=== PATIENT | female | born 2000 | race Caucasian/White ===

== ENCOUNTER 2019-03-14 02:02 | Emergency (ER) | payer MEDICAID ==
[2019-03-14 02:12] VITALS: O2SAT 100
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
[2019-03-14 03:54] VITALS: BP 131/72; PULSE 87
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
== END 2019-03-14 03:54 | disposition home or self-care (01) ==
LOC: ED 02:02
DX: M54.2 Cervicalgia (principal); R51 Headache; M25.551 Pain in right hip; Y04.0XXA Assault by unarmed brawl or fight, initial encounter; Y93.89 Activity, other specified
CPT/HCPCS: 70450; 70486; 72125; 73502; 84703; 99284

== ENCOUNTER 2019-12-13 21:18 | Emergency (ER) | payer MEDICAID ==
[2019-12-13] MEDS ORDERED: Sodium Chloride 0.9% 1000 ML 1,000 ML IV STA (22:01)
[2019-12-13] MEDS ORDERED: Sodium Chloride 0.9% 1000 ML 1,000 ML ONE (22:26)
[2019-12-13 22:50] LABS: Absolute Neutrophil Ct (ANC) 9.14 (1.4-6.9); BASOPHIL % 0.2 % (0.0-0.4); Basophil (Absolute #) 0.02 (0-0.4); Eosinophil % 0.9 % (0.00-5.0); Eosinophil (Absolute #) 0.11 (0-0.5); Hematocrit 43.2 % (35-47); Hemoglobin 14.7 gm/dl (12.0-16.0); Lymphocyte (Absolute #) 2.29 (1.0-4.6); Lymphocytes % 18.3 % (24.0-44.0); Mean Cell Volume 87.6 fl (78-100); Mean Corpuscular Hemoglobin 29.8 pg (26-32); Mean Platelet Volume 11.8 fl (7.5-11.0); Monocyte (Absolute #) 0.98 (0.0-1.3); Monocytes % 7.8 % (0.0-12.0); Neutrophil % 72.8 % (36.0-66.0); Platelet Count 218 K/mm3 (150-450); Red Blood Count 4.93 M/mm3 (4.1-5.4); White Blood Count 12.5 K/mm3 (4.0-10.5)
[2019-12-13 23:04] LABS: ALBUMIN 4.5 g/dL (3.5-5.0); ALKALINE PHOSPHATASE 107 U/L (38-126); BLOOD UREA NITROGEN 9 mg/dL (7-17); CHLORIDE 104 mmol/L (98-107); Calcium 9.6 mg/dL (8.4-10.2); Carbon Dioxide 27 mmol/L (22-30); Creatinine 1 0.77 mg/dL (0.52-1.04); EST GLOMERULAR FILTRATION RATE > 60.0 ML/MIN; Glucose 101 mg/dL (74-106); LIPASE 52 U/L (23-300); Potassium 3.8 mmol/L (3.5-5.1); SGOT/AST 30 U/L (14-36); SGPT/ALT 15 U/L (0-35); SODIUM 138 mmol/L (137-145); Total Protein 7.5 g/dL (6.3-8.2)
[2019-12-13 23:06] LABS: Appearance SLIGHTLY CLOUDY (CLEAR); Bacteria FEW /HPF (NEGATIVE); Bilirubin NEGATIVE (NEGATIVE); Blood LARGE Ery/ul (0-5); Glucose NEGATIVE (NEGATIVE); Ketones NEGATIVE (NEGATIVE); Leukocyte Esterase LARGE (NEGATIVE); Nitrite NEGATIVE (NEGATIVE); Protein,Urine Dip 30 (Negative); RBC 0-2 /HPF (0-2); Specific Gravity 1.002 (1.005-1.025); Urobilinogen NEGATIVE mg/dL (0-1); WBC 26-50 /HPF (0-5)
[2019-12-13] MEDS ORDERED: ROCEPHIN 1 Gm-D5w 50 ml Bag** 1 G/50 ML IVPB IV STA (23:22)
--- NOTE | 2019-12-13 23:22 | ERPHSYRPT ---
- History of Present Illness Time Seen by Provider: 12/13/19 21:55 Historian: patient Exam Limitations: no limitations Patient Subjective Stated Complaint: pt states she has had rt lower abd pain for last 3 days. states pain was much worse tonight after eating. has had some constipation for the last week, hard bm today Triage Nursing Assessment: pt alert and oriented, answers questions approp. pt ambulatory with steady gait noted. respirations nonlabored with lungs cta. abd soft. pt reports rebound tenderness in rt lower quad. bowel sounds present x4. skin pink warm and dry. Physician History: Patient is a 18-year-old female who presents to our ED with complaints of right lower quadrant pain approximately 3 days ago. Pain is been progressive. Pain described as an ache that is well localized. Patient is also noticed that her bowel movement frequency has decreased. Patient states her stools are more firm than normal. No associated nausea or vomiting. No trauma. No fevers. Symptoms are moderate in intensity. No specific worsening or improving factors. Patient voices no other complaints or concerns at this time. Timing/Duration: day(s) Activities at Onset: none Quality: aching Abdominal Pain Onset Location: RLQ Pain Radiation: no radiation Severity of Pain-Max: moderate Severity of Pain-Current: mild Modifying Factors: Improves With: defecating. Worsens With: vomiting, walking Associated Symptoms: No chest pain, No diaphoresis, No diarrhea, No heartburn, No neck pain, No shortness of breath, No syncope, No vomiting, No weakness Previous symptoms: no prior history Allergies/Adverse Reactions: No Known Drug Allergies Allergy (Verified 12/13/19 21:59) Home Medications: Escitalopram Oxalate 10 mg [Lexapro 10 MG] 10 mg PO DAILY 12/13/19 [History] Hx Tetanus, Diphtheria Vaccination/Date Given: Yes Hx Influenza Vaccination/Date Given: No Hx Pneumococcal Vaccination/Date Given: No Immunizations Up to Date: Yes Travel Risk - International Travel Have you traveled outside of the country in past 3 weeks: No - Coronavirus Screening Are you exhibiting any of the following symptoms?: No Close contact with a COVID-19 positive Pt in past 14-21 Days: No - Review of Systems Constitutional: No Symptoms, No Fever, No Chills Eyes: No Symptoms Ears, Nose, & Throat: No Symptoms Respiratory: No Symptoms, No Cough, No Dyspnea Cardiac: No Symptoms, No Chest Pain, No Edema, No Syncope Abdominal/Gastrointestinal: No Symptoms, No Abdominal Pain, No Nausea, No Vomiting, No Diarrhea Genitourinary Symptoms: No Symptoms, No Dysuria Musculoskeletal: No Symptoms, No Back Pain, No Neck Pain Skin: No Symptoms, No Rash Neurological: No Symptoms, No Dizziness, No Focal Weakness, No Sensory Changes Psychological: No Symptoms Endocrine: No Symptoms Hematologic/Lymphatic: No Symptoms Immunological/Allergic: No Symptoms All Other Systems: Reviewed and Negative - Past Medical History Pertinent Past Medical History: Yes Neurological History: No Pertinent History ENT History: No Pertinent History Cardiac History: No Pertinent History Respiratory History: No Pertinent History Endocrine Medical History: No Pertinent History Musculoskeletal History: No Pertinent History GI Medical History: No Pertinent History History: No Pertinent History Psycho-Social History: Depression Female Reproductive Disorders: No Pertinent History Other Medical History: irritable bowel - Past Surgical History Past Surgical History: No - Social History Smoking Status: Former smoker Exposure to second hand smoke: No Drug Use: marijuana Patient Lives Alone: No - Female History Hx Last Menstrual Period: irreg- recent off depo Hx Now: No - Nursing Vital Signs Nursing Vital Signs: Initial Vital Signs Temperature 98.8 F 12/13/19 21:48 Pulse Rate 82 12/13/19 21:48 Respiratory Rate 16 12/13/19 21:48 Blood Pressure 150/89 12/13/19 21:48 O2 Sat by Pulse Oximetry 100 12/13/19 21:48 Pain Scale Pain Intensity 8 - Physical Exam General Appearance: no apparent distress, alert Eye Exam: PERRL/EOMI, eyes nml inspection Ears, Nose, Throat Exam: normal ENT inspection, pharynx normal, moist mucous membranes Neck Exam: normal inspection, non-tender, supple, full range of motion Respiratory Exam: normal breath sounds, lungs clear, No respiratory distress Cardiovascular Exam: regular rate/rhythm, normal heart sounds Gastrointestinal/Abdomen Exam: soft, tenderness, other (Tenderness to palpation right lower quadrant. Positive tenderness at McBurney's point.), No mass, No guarding, No pulsatile mass, No organomegaly Back Exam: normal inspection, normal range of motion, No CVA tenderness, No vertebral tenderness Extremity Exam: normal inspection, normal range of motion, pelvis stable Neurologic Exam: alert, oriented x 3, cooperative, normal mood/affect, nml cerebellar function, sensation nml, No motor deficits Skin Exam: normal color, warm, dry SpO2 Interpretation: normal SpO2: 98 O2 Delivery: Room Air - Course Nursing assessment & vital signs reviewed: Yes - CT Exams Abdomen/Pelvis CT Interpretation: Tele-radiologist Report (CT findings suggestive of cystitis and a sending urinary tract infection without definitive evidence of pyelonephr itis.) Ordered Tests: Active Orders 24 hr Category Date Time Status IV Insertion STAT Care 12/13/19 22:01 Active ABDOMEN AND PELVIS W CONTRAST [CT] Stat Exams 12/13/19 23:20 Taken CBC W DIFF Stat Lab 12/13/19 22:40 Completed CMP Stat Lab 12/13/19 22:40 Completed CULTURE,URINE Stat Lab 12/13/19 22:43 Received HCG,QUALITATIVE URINE Stat Lab 12/13/19 22:43 Completed LIPASE Stat Lab 12/13/19 22:40 Completed UA W/RFX UR CULTURE Stat Lab 12/13/19 22:43 Completed Medication Summary Discontinued Medications Generic Name Dose Route Start Last Admin Trade Name Antonyq PRN Reason Stop Dose Admin Sodium Chloride 1,000 mls @ 999 mls/hr 12/13/19 22:01 12/13/19 22:27 Sodium Chloride 0.9% 1000 Ml IV 12/13/19 23:01 999 mls/hr .Q1H1M STA Administration Sodium Chloride Confirm 12/13/19 22:26 Sodium Chloride 0.9% 1000 Ml Administered 12/13/19 22:27 Dose 1,000 mls @ ud .ROUTE .STK-MED ONE Ceftriaxone Sodium/Dextrose 1 g in 50 mls @ 100 mls/hr 12/13/19 23:22 12/13/19 23:37 Rocephin 1 Gm-D5w 50 Ml Bag IV 12/13/19 23:51 100 ml/hr STAT STA 100 mls/hr Administration Ceftriaxone Sodium/Dextrose Confirm 12/13/19 23:34 Rocephin 1 Gm-D5w 50 Ml Bag Administered 12/13/19 23:35 Dose 1 g in 50 mls @ ud IV .STK-MED ONE Lab/Rad Data: Laboratory Result Diagrams 12/13/19 22:40 12/13/19 22:40 Laboratory Results 12/13/19 12/13/19 12/13/19 Range/Units 22:43 22:43 22:40 WBC (4.0-10.5) K/mm3 RBC (4.1-5.4) M/mm3 Hgb (12.0-16.0) gm/dl Hct (35-47) % MCV (78-100) fl MCH (26-32) pg MCHC (32-36) g/dl RDW (11.5-14.0) % Plt Count (150-450) K/mm3 MPV (7.5-11.0) fl Gran % (36.0-66.0) % Eos # (Auto) (0-0.5) Absolute Lymphs (auto) (1.0-4.6) Absolute Monos (auto) (0.0-1.3) Lymphocytes % (24.0-44.0) % Monocytes % (0.0-12.0) % Eosinophils % (0.00-5.0) % Basophils % (0.0-0.4) % Absolute Granulocytes (1.4-6.9) Basophils # (0-0.4) Sodium 138 (137-145) mmol/L Potassium 3.8 (3.5-5.1) mmol/L Chloride 104 (98-107) mmol/L Carbon Dioxide 27 (22-30) mmol/L Anion Gap 11.0 (5-15) MEQ/L BUN 9 (7-17) mg/dL Creatinine 0.77 (0.52-1.04) mg/dL Estimated GFR > 60.0 ML/MIN Glucose 101 (74-106) mg/dL Calcium 9.6 (8.4-10.2) mg/dL Total Bilirubin 0.50 (0.2-1.3) mg/dL AST 30 (14-36) U/L ALT 15 (0-35) U/L Alkaline Phosphatase 107 (38-126) U/L Serum Total Protein 7.5 (6.3-8.2) g/dL Albumin 4.5 (3.5-5.0) g/dL Lipase 52 (23-300) U/L Urine Color STRAW (YELLOW) Urine Appearance SLIGHTLY CLOUDY (CLEAR) Urine pH 8.0 (5-6) Ur Specific [place] 1.002 (1.005-1.025) Urine Protein 30 (Negative) Urine Ketones NEGATIVE (NEGATIVE) Urine Blood LARGE (0-5) Lb/ul Urine Nitrite NEGATIVE (NEGATIVE) Urine Bilirubin NEGATIVE (NEGATIVE) Urine Urobilinogen NEGATIVE (0-1) mg/dL Ur Leukocyte Esterase LARGE (NEGATIVE) Urine WBC (Auto) 26-50 (0-5) /HPF Urine RBC (Auto) 0-2 (0-2) /HPF U Hyaline Cast (Auto) 3-5 (0-2) /LPF U Epithel Cells (Auto) NONE (FEW) /HPF Urine Bacteria (Auto) FEW (NEGATIVE) /HPF Urine Culture Reflexed YES (NO) Urine Glucose NEGATIVE (NEGATIVE) mg/dL Urine HCG, Qual NEGATIVE (Negative) 12/13/19 Range/Units 22:40 WBC 12.5 H (4.0-10.5) K/mm3 RBC 4.93 (4.1-5.4) M/mm3 Hgb 14.7 (12.0-16.0) gm/dl Hct 43.2 (35-47) % MCV 87.6 (78-100) fl MCH 29.8 (26-32) pg MCHC 34.0 (32-36) g/dl RDW 13.0 (11.5-14.0) % Plt Count 218 (150-450) K/mm3 MPV 11.8 H (7.5-11.0) fl Gran % 72.8 H (36.0-66.0) % Eos # (Auto) 0.11 (0-0.5) Absolute Lymphs (auto) 2.29 (1.0-4.6) Absolute Monos (auto) 0.98 (0.0-1.3) Lymphocytes % 18.3 L (24.0-44.0) % Monocytes % 7.8 (0.0-12.0) % Eosinophils % 0.9 (0.00-5.0) % Basophils % 0.2 (0.0-0.4) % Absolute Granulocytes 9.14 H (1.4-6.9) Basophils # 0.02 (0-0.4) Sodium (137-145) mmol/L Potassium (3.5-5.1) mmol/L Chloride (98-107) mmol/L Carbon Dioxide (22-30) mmol/L Anion Gap (5-15) MEQ/L BUN (7-17) mg/dL Creatinine (0.52-1.04) mg/dL Estimated GFR ML/MIN Glucose (74-106) mg/dL Calcium (8.4-10.2) mg/dL Total Bilirubin (0.2-1.3) mg/dL AST (14-36) U/L ALT (0-35) U/L Alkaline Phosphatase (38-126) U/L Serum Total Protein (6.3-8.2) g/dL Albumin (3.5-5.0) g/dL Lipase (23-300) U/L Urine Color (YELLOW) Urine Appearance (CLEAR) Urine pH (5-6) Ur Specific [place] (1.005-1.025) Urine Protein (Negative) Urine Ketones (NEGATIVE) Urine Blood (0-5) Lb/ul Urine Nitrite (NEGATIVE) Urine Bilirubin (NEGATIVE) Urine Urobilinogen (0-1) mg/dL Ur Leukocyte Esterase (NEGATIVE) Urine WBC (Auto) (0-5) /HPF Urine RBC (Auto) (0-2) /HPF U Hyaline Cast (Auto) (0-2) /LPF U Epithel Cells (Auto) (FEW) /HPF Urine Bacteria (Auto) (NEGATIVE) /HPF Urine Culture Reflexed (NO) Urine Glucose (NEGATIVE) mg/dL Urine HCG, Qual (Negative) - Progress Progress: improved Progress Note: 12/13/19 23:54 Patient reassessed. She feels well. Patient requesting discharge. CT suggesti ve of cystitis and ascending urinary tract infection. UTI observed on UA. Patient received a dose of antibiotics in our ED. A prescription for Macrobid was forwarded the patient's pharmacy. Patient advised to follow-up with her primary care doctor within 48 hours. Patient agrees with plan of care. Patient voiced no other complaints at this time. Patient states she is ready for discharge. Counseled pt/family regarding: lab results, diagnosis, need for follow-up, rad results - Departure Departure Disposition: Home Clinical Impression: UTI (urinary tract infection) Condition: Stable Critical Care Time: No Referrals: WEN ROMAN MD [Primary Care Provider] - Additional Instructions: Discharge/Care Plan EWELINA FARMER was seen on 12/13/19 in the Emergency Room. The patient was counseled regarding Diagnosis,Lab results, Imaging studies, need for follow up and when to return to the Emergency Room. Prescriptions given: Discharge Note I have spoken with the patient and/or caregivers. I have explained the patient's condition, diagnosis and treatment plan based on the information available to me at this time. I have answered the patient's and/or caregiver's questions and addressed any concerns. The patient and/or caregivers have as good understanding of the patient's diagnosis, condition and treatment plan as can be expected at this point. The vital signs have been stable. The patient's condition is stable and appropriate for discharge from the emergency department. The patient will pursue further outpatient evaluation with the primary care physician or other designated or consulting physician as outlined in the discharge instructions. The patient and/or caregivers are agreeable to this plan of care and follow-up instructions have been explained in detail. The patient and/or caregivers have received these instruction. The patient/and or caregivers are aware that any significant change in condition or worsening of symptoms should prompt an immediate return to this or the closest emergency department or call 911. Prescriptions: Nitrofurantoin Macro 100 mg [Macrobid 100MG Capsule] 100 mg PO BID 7 Days #14 capsule
[2019-12-13] MEDS ORDERED: ROCEPHIN 1 Gm-D5w 50 ml Bag** 1 G/50 ML IVPB IV ONE (23:34)
[2019-12-14 00:21] VITALS: BP 118/71; PULSE 81; O2SAT 99
--- NOTE | 2019-12-14 08:49 | XRAY ---
Indication: Right lower quadrant pain. UTI symptoms. Multiple contiguous axial images obtained through the abdomen and pelvis using 80 cc Isovue 370 contrast only. Comparison: None Lung bases are clear. Heart is not enlarged. Stomach is distended with food/fluid. Noncontrasted stomach and bowel loops appear nonobstructed. Appendix not seen. Mild diffuse scattered colonic fecal debris. No free fluid/air. Right kidney demonstrates minimal perinephric haziness favoring underlying pyelonephritis. Mid to proximal right ureter also demonstrates minimal wall thickening as does the normally distended urinary bladder suggesting additional inflammatory process. Remaining liver, gallbladder, pancreas, spleen, adrenal glands, kidneys, ureters, bladder, uterus, and aorta appear unremarkable. No pathologic retroperitoneal lymphadenopathy. Osseous structures intact. Impression: 1. CT features as detailed favoring mild right pyelonephritis with mild ureteritis/cystitis. 2. Incidental mild diffuse fecal stasis. Comment: Preliminary interpretation was made by [facility]. No critical discrepancy.
== END 2019-12-14 00:30 | disposition home or self-care (01) ==
LOC: ED 21:18
DX: N39.0 Urinary tract infection, site not specified (principal)
CPT/HCPCS: 36000; 36415; 74177; 80053; 81001; 83690; 84703; 85025; 87077; 87086; 87186; 96360; 96365; 99284; J0696

== ENCOUNTER 2022-04-05 09:57 | Emergency (ER) | payer MEDICAID ==
[2022-04-05 10:21] VITALS: O2SAT 99
[2022-04-05 11:36] LABS: INFLUENZA A NEGATIVE (NEGATIVE); INFLUENZA B NEGATIVE (NEGATIVE); RESPIRATORY SYNCTIAL VIRUS NEGATIVE (Negative)
[2022-04-05 11:40] LABS: SARS-CoV-2 Xpert Express POSITIVE (NEGATIVE)
[2022-04-05 12:18] VITALS: PULSE 80
--- NOTE | 2022-04-05 12:19 | ERPHSYRPT ---
- History of Present Illness Time Seen by Provider: 04/05/22 10:47 Source: patient Exam Limitations: no limitations Patient Subjective Stated Complaint: Patient is c/o cough, runny nose, aches, "being tired" for the past few days. Patient states her son has COVID. Triage Nursing Assessment: Patient ambulated back to ED without difficulties. She is alert and oriented. No SOB noted. Patient smiling and laughing with staff. Clear drainage noted from both nares. Patient clearing her throat at times. No cough noted during assessment. Physician History: 21 years old female presented in the ER with chief complaint of flulike symptoms for the last couple of days with progressive worsening. Patient reports cough congestion, runny nose along with body aches fatigue tiredness, headache and dizziness. Son has similar symptoms and was tested positive. Patient is very anxious. Wants to be tested for COVID-19 as her home test was negative. Timing/Duration: day(s) (2), intermittent, gradual onset Cough Quality/Degree: mild, dry cough Possible Cause: illness exposure Modifying Factors: Worsens With: coughing Associated Symptoms: cough, dizziness, headache, muscle aches, nasal congestion, nasal drainage, sore throat, No shortness of breath, No wheezing Allergies/Adverse Reactions: latex Allergy (Verified 04/05/22 10:05) Latex, Natural Rubber Allergy (Verified 04/05/22 10:05) Home Medications: No Reportable Medications [No Reported Medications] 04/05/22 [History] Hx Tetanus, Diphtheria Vaccination/Date Given: Yes Hx Influenza Vaccination/Date Given: No Hx Pneumococcal Vaccination/Date Given: No Immunizations Up to Date: Yes Travel Risk - International Travel Have you traveled outside of the country in past 3 weeks: No - Coronavirus Screening Are you exhibiting any of the following symptoms?: Yes Symptoms: Fever, Cough: New Onset, Headaches/Body Aches/Fatigue Close contact with a COVID-19 positive Pt in past 14-21 Days: Yes - Vaccine Status Have you recieved a Covid-19 vaccination: No - Review of Systems Constitutional: Fatigue, Weakness Eyes: No Symptoms Ears, Nose, & Throat: Nose Congestion Respiratory: Cough Cardiac: No Symptoms Abdominal/Gastrointestinal: No Symptoms Genitourinary Symptoms: No Symptoms Musculoskeletal: Myalgias Neurological: Dizziness, Headache Psychological: Anxiety Endocrine: No Symptoms Hematologic/Lymphatic: No Symptoms Immunological/Allergic: No Symptoms - Past Medical History Pertinent Past Medical History: Yes Neurological History: No Pertinent History ENT History: No Pertinent History Cardiac History: No Pertinent History Respiratory History: No Pertinent History Endocrine Medical History: No Pertinent History Musculoskeletal History: No Pertinent History GI Medical History: No Pertinent History History: No Pertinent History Psycho-Social History: Depression Female Reproductive Disorders: No Pertinent History Other Medical History: irritable bowel - Past Surgical History Past Surgical History: No - Social History Smoking Status: Former smoker Exposure to second hand smoke: No Drug Use: marijuana Patient Lives Alone: No - Female History Hx Last Menstrual Period: NOW Hx Now: No - Nursing Vital Signs Nursing Vital Signs: Initial Vital Signs Temperature 98.2 F 04/05/22 10:08 Pulse Rate 78 04/05/22 10:08 Respiratory Rate 16 04/05/22 10:08 Blood Pressure 120/76 04/05/22 10:08 O2 Sat by Pulse Oximetry 99 04/05/22 10:08 Pain Scale Pain Intensity 4 - Physical Exam General Appearance: no apparent distress, alert, anxiety Eye Exam: PERRL/EOMI, eyes nml inspection Ears, Nose, Throat Exam: TMs normal, pharyngeal erythema Neck Exam: normal inspection, non-tender, supple, full range of motion Respiratory Exam: normal breath sounds, lungs clear Cardiovascular Exam: regular rate/rhythm, normal heart sounds Gastrointestinal/Abdomen Exam: soft, normal bowel sounds, No tenderness Back Exam: normal inspection, normal range of motion Extremity Exam: normal inspection, normal range of motion Neurologic Exam: alert, oriented x 3, cooperative, No normal mood/affect (Anxious) Skin Exam: normal color SpO2 Interpretation: normal SpO2: 99 O2 Delivery: Room Air Lab/Rad Data: Laboratory Results 04/05/22 Range/Units 10:10 Influenza Type A Ag NEGATIVE (NEGATIVE) Influenza Type B Ag NEGATIVE (NEGATIVE) RSV (PCR) NEGATIVE (Negative) SARS-CoV-2 (PCR) POSITIVE A (NEGATIVE) - Progress Progress: re-examined Air Movement: good Progress Note: 04/05/22 12:18 Patient is very anxious, she is counseled. Feeling better. Has positive COVID- 19, recommended supportive care. Do not think she needs any other work-up and stable for discharge. Discussed signs symptoms of worsening needing return to ER which she is in understanding. Blood Culture(s) Obtained: No Antibiotics given: No Counseled pt/family regarding: lab results, diagnosis, need for follow-up - Departure Departure Disposition: Home Clinical Impression: COVID-19 virus detected, Viral syndrome Condition: Stable Critical Care Time: No Referrals: WEN ROMAN MD [Primary Care Provider] - Follow Up with PCP/3 days Instructions: Viral Syndrome (DC), COVID-19 (DC) Additional Instructions: Drink plenty of fluids to keep yourself well-hydrated. Take Tylenol/ibuprofen as needed. Follow-up with primary care for reevaluation. Return to ER for any worsening.
[2022-04-05 12:20] VITALS: BP 111/83
== END 2022-04-05 12:27 | disposition home or self-care (01) ==
LOC: ED 09:57
DX: U07.1 COVID-19 (principal); R05.1 Acute cough; R09.81 Nasal congestion; M79.10 Myalgia, unspecified site; R53.83 Other fatigue; R51.9 Headache, unspecified; R42 Dizziness and giddiness; Z28.310 Unvaccinated for COVID-19
CPT/HCPCS: 0241U; 99282

== ENCOUNTER 2022-04-18 14:52 | Emergency (ER) | payer MEDICAID, OTHER ==
[2022-04-18 15:03] VITALS: BP 146/78; O2SAT 99
--- NOTE | 2022-04-18 16:13 | ERPHSYRPT ---
- History of Present Illness Time Seen by Provider: 04/18/22 15:55 Source: patient Exam Limitations: no limitations Patient Subjective Stated Complaint: Pt states "We have been here 3 times this week. I had covid on the 01 of april and we went to [facility] and they s ent us here. I noticed that there was mold in our appartment and I know that can cause issues." Triage Nursing Assessment: PT presented alert and oriented X 3, skin pwd. Pt am bulates with an upright steady gait, able to speak in clear full sentences. Pt is on ammoxicillin, second day. Physician History: This a 21-year-old white female who is on amoxicillin from an earlier visit at urgent care clinic and presents to the emergency department with resolved right eye swelling. She was concerned and called the urgent care clinic because she just found out there is significant amount of mold at her home. Urgent care clinic told her to come to the emergency department. On arrival to the emergency department she is afebrile her vital signs are normal. She has no specific complaints. Her eye swelling has completely resolved. Timing/Duration: today Severity: mild Modifying Factors: Improves With: nothing Associated Symptoms: denies symptoms Allergies/Adverse Reactions: latex Allergy (Verified 04/05/22 10:05) Latex, Natural Rubber Allergy (Verified 04/05/22 10:05) Home Medications: Amoxicillin 875 mg PO DAILY 04/18/22 [History] Hx Tetanus, Diphtheria Vaccination/Date Given: Yes Hx Influenza Vaccination/Date Given: No Hx Pneumococcal Vaccination/Date Given: No Immunizations Up to Date: Yes Travel Risk - International Travel Have you traveled outside of the country in past 3 weeks: No - Coronavirus Screening Are you exhibiting any of the following symptoms?: No Close contact with a COVID-19 positive Pt in past 14-21 Days: No - Vaccine Status Have you recieved a Covid-19 vaccination: No - Review of Systems Constitutional: No Symptoms Eyes: No Symptoms, Other (Eye swelling that was present yesterday has resolved) Respiratory: No Symptoms Cardiac: No Symptoms Abdominal/Gastrointestinal: No Symptoms Genitourinary Symptoms: No Symptoms Musculoskeletal: No Symptoms Skin: No Symptoms Neurological: No Symptoms Psychological: No Symptoms Endocrine: No Symptoms Hematologic/Lymphatic: No Symptoms Immunological/Allergic: No Symptoms All Other Systems: Reviewed and Negative - Past Medical History Pertinent Past Medical History: Yes Neurological History: No Pertinent History ENT History: No Pertinent History Cardiac History: No Pertinent History Respiratory History: No Pertinent History Endocrine Medical History: No Pertinent History Musculoskeletal History: No Pertinent History GI Medical History: No Pertinent History History: No Pertinent History Psycho-Social History: Depression Female Reproductive Disorders: No Pertinent History Other Medical History: irritable bowel - Past Surgical History Past Surgical History: No - Social History Smoking Status: Former smoker Exposure to second hand smoke: No Drug Use: marijuana Patient Lives Alone: No - Female History Hx Last Menstrual Period: 04/01/2022 Hx Now: No - Nursing Vital Signs Nursing Vital Signs: Initial Vital Signs Temperature 97.3 F 04/18/22 14:58 Pulse Rate 92 H 04/18/22 14:58 Respiratory Rate 20 04/18/22 14:58 Blood Pressure 146/78 04/18/22 14:58 O2 Sat by Pulse Oximetry 99 04/18/22 14:58 Pain Scale Pain Intensity 2 - Physical Exam General Appearance: no apparent distress, alert, anxiety, thin Eye Exam: PERRL/EOMI, eyes nml inspection Ears, Nose, Throat Exam: normal ENT inspection, moist mucous membranes Neck Exam: normal inspection, non-tender, supple, full range of motion Respiratory Exam: normal breath sounds, lungs clear, airway intact, No chest tenderness, No respiratory distress Cardiovascular Exam: regular rate/rhythm, normal heart sounds, normal peripheral pulses Gastrointestinal/Abdomen Exam: soft, normal bowel sounds, No tenderness Pelvic Exam: not done Rectal Exam: not done Back Exam: normal inspection Extremity Exam: normal inspection, normal range of motion, pelvis stable Neurologic Exam: alert, oriented x 3, cooperative, 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, normal mood/affect, nml cerebellar function, nml station & gait, sensation nml Skin Exam: normal color, warm, dry Lymphatic Exam: No adenopathy SpO2 Interpretation: normal SpO2: 99 O2 Delivery: Room Air - Course Nursing assessment & vital signs reviewed: Yes - Progress Progress: unchanged Counseled pt/family regarding: diagnosis, need for follow-up - Departure Departure Disposition: Home Clinical Impression: Encounter for medical screening examination Condition: Stable Critical Care Time: No Referrals: MARTÍNEZ TOMAS MD [Primary Care Provider] - Follow up/PCP as directed Additional Instructions: Avoid exposure to mold. Drink plenty of fluids. Continue medication as prescribed. Follow-up with your primary care physician on as-needed basis.
[2022-04-18 16:21] VITALS: PULSE 84
== END 2022-04-18 16:21 | disposition home or self-care (01) ==
LOC: ED 14:52
DX: Z77.120 Contact with and (suspected) exposure to mold (toxic) (principal); Z28.310 Unvaccinated for COVID-19
CPT/HCPCS: 99281

== ENCOUNTER 2024-05-03 09:59 | Emergency (ER) | payer OTHER ==
[2024-05-03 10:08] VITALS: RESP 18; TEMP 97.5
--- NOTE | 2024-05-03 10:28 | ERPHSYRPT ---
- History of Present Illness Time Seen by Provider: 05/03/24 10:20 Source: patient Exam Limitations: no limitations Patient Subjective Stated Complaint: Pt states "I got the flu shot in my right delt yesterday and last night I started to get a rash on my right shoulder and when I woke up this morning my throat was hurting and I have a rash down my right arm." Triage Nursing Assessment: Pt presented alert and oriented X 3, skin pwd. pt ambulates with an upright steady gait, able to speak in clear full sentences. Pt resting comfortably on the bed. Physician History: This is a 23-year-old white female patient who presents to the emergency department approximately 24 hours after receiving flu shot in her right shoulder. She was concerned because she had a rash going down her right arm followed by tightening of her throat and a sore throat that came on suddenly. Her primary concern is that she was having an allergic reaction to something and likely the flu shot per her concern. She has no wheezing. She has no breathing issues. Her room air oxygen saturation level is 98%. She was tearful. Timing/Duration: yesterday, worse (This morning) Cough Quality/Degree: mild, dry cough Possible Cause: no prior episodes Modifying Factors: Improves With: coughing Associated Symptoms: cough, sore throat Allergies/Adverse Reactions: latex Allergy (Verified 04/05/22 10:05) Latex, Natural Rubber Allergy (Verified 04/05/22 10:05) Hx Tetanus, Diphtheria Vaccination/Date Given: Yes Hx Influenza Vaccination/Date Given: Yes Hx Pneumococcal Vaccination/Date Given: No Immunizations Up to Date: No Travel Risk - International Travel Have you traveled outside of the country in past 3 weeks: No - Emerging Infectious Disease Are you exhibiting symptoms associated with any current EIDs: No Symptoms: Cough: New Onset, Rash - Review of Systems Constitutional: No Symptoms Eyes: No Symptoms Ears, Nose, & Throat: Throat Pain Respiratory: No Symptoms Cardiac: No Symptoms Abdominal/Gastrointestinal: No Symptoms Genitourinary Symptoms: No Symptoms Musculoskeletal: No Symptoms Skin: Rash (Primarily her right arm) Neurological: No Symptoms Psychological: No Symptoms Endocrine: No Symptoms Hematologic/Lymphatic: No Symptoms Immunological/Allergic: No Symptoms All Other Systems: Reviewed and Negative - Past Medical History Pertinent Past Medical History: Yes Neurological History: No Pertinent History ENT History: No Pertinent History Cardiac History: No Pertinent History Respiratory History: No Pertinent History Endocrine Medical History: No Pertinent History Musculoskeletal History: No Pertinent History GI Medical History: No Pertinent History History: No Pertinent History Psycho-Social History: Depression Female Reproductive Disorders: No Pertinent History Other Medical History: irritable bowel - Past Surgical History Past Surgical History: No - Female History Hx Last Menstrual Period: 04/27/2024 Hx Now: No - Social History Smoking Status: Current every day smoker How long have you smoked: couple yea Exposure to second hand smoke: Yes Drug Use: marijuana Patient Lives Alone: No - Social Determinants of Health Will the patient participate in the screening: Yes Do you worry about a steady place to live?: No Do you have any problems with any of the following?: No known problems In the past 12 months,have you had to go without utilities?: No Transportation Issues: No Has anyone in your support network made you feel unsafe?: No Have you or anyone in your house had to go without enough: No - Nursing Vital Signs Nursing Vital Signs: Initial Vital Signs Temperature 97.5 F 05/03/24 10:02 Pulse Rate 102 H 05/03/24 10:02 Respiratory Rate 18 05/03/24 10:02 Blood Pressure 148/90 05/03/24 10:02 O2 Sat by Pulse Oximetry 96 05/03/24 10:02 Pain Scale Pain Intensity 0 - Physical Exam General Appearance: no apparent distress, alert, anxiety Eye Exam: PERRL/EOMI, eyes nml inspection Ears, Nose, Throat Exam: normal ENT inspection, TMs normal, pharynx normal, moist mucous membranes Neck Exam: normal inspection, non-tender, supple, full range of motion Respiratory Exam: normal breath sounds, lungs clear, No chest tenderness, No respiratory distress, No wheezing, No stridor Cardiovascular Exam: regular rate/rhythm, normal heart sounds, normal peripheral pulses Gastrointestinal/Abdomen Exam: soft, normal bowel sounds, No tenderness Pelvic Exam: not done Rectal Exam: not done Back Exam: normal inspection, normal range of motion, No CVA tenderness, No vertebral tenderness Extremity Exam: normal inspection, normal range of motion, pelvis stable Neurologic Exam: alert, oriented x 3, cooperative, 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 tested, nml cerebellar function, nml station & gait, sensation nml Skin Exam: normal color, warm, dry Lymphatic Exam: No adenopathy SpO2 Interpretation: normal SpO2: 96 O2 Delivery: Room Air - Course Nursing assessment & vital signs reviewed: Yes Ordered Tests: Active Orders 24 hr Category Date Time Status CHEST 1 VIEW (PORTABLE) Stat Exams 05/03/24 10:21 Completed Medication Summary Generic Name Dose Route Start Last Admin Trade Name Christian PRN Reason Stop Dose Admin Famotidine 40 mg 05/03/24 11:47 Famotidine 20 Mg Tablet PO 05/03/24 11:48 STAT ONE Prednisone 20 mg 05/03/24 11:46 Prednisone 20 Mg Tablet PO 05/03/24 11:47 STAT ONE Lab/Rad Data: Laboratory Results 05/03/24 05/03/24 Range/Units 10:21 10:21 Influenza Type A Ag NEGATIVE (NEGATIVE) Influenza Type B Ag NEGATIVE (NEGATIVE) RSV (PCR) NEGATIVE (NEGATIVE) SARS-CoV-2 (PCR) NEGATIVE (NEGATIVE) Group A Strep Antibody NOT DETECTED (NEGATIVE) - Progress Progress: improved, re-examined Air Movement: good Progress Note: 05/03/24 10:33 My medical decision making and the assignment of low to moderate complexity is based on review of the patient's past medical history, review of the patient's medication list, reviewed patient drug allergy list, history present illness and physical findings on examination. The workup in this patient includes viral swabs, group A strep test and chest x-ray. Differential diagnosis includes but is not limited to allergic reaction, viral illness, strep pharyngitis, upper respiratory infection, pneumonia 05/03/24 11:47 I interpreted the patient's laboratory data results. Based on the laboratory data results, the patient does not have an acute, emergent medical issue. For the patient's peace of mind, we will treat her for an allergic reaction. Blood Culture(s) Obtained: No Antibiotics given: No Medical Desision Making - Diagnostic Testing Diagnostic test were ordered, analyzed, and reviewed by me: Yes - Risk of complications The pt has a mod risk of morbidity or mortality based on: Need for prescription drug management - Departure Departure Disposition: Home Clinical Impression: Allergic reaction Condition: Stable Critical Care Time: No Additional Instructions: Drink plenty of fluids. Take Benadryl 25 mg orally 3 times a day for 4 days. Take your new prescription medications as prescribed. Call your prescribing provider today, 05/03/2024, to make arrangements for follow-up appointment for further evaluation management. Prescriptions: Prednisone 10 mg [Deltasone 10 mg] 10 mg PO TID #12 tablet Famotidine 20 mg [Pepcid 20 MG] 20 mg PO DAILY #5 tablet
--- NOTE | 2024-05-03 10:44 | XRAY ---
Indication: Cough and sore throat. Comparison: October 07, 2023 Portable chest again demonstrates normal heart and lungs. Bony thorax intact. No new/acute findings.
[2024-05-03 11:02] VITALS: BP 116/67; PULSE 80
[2024-05-03 11:40] LABS: INFLUENZA A NEGATIVE (NEGATIVE); INFLUENZA B NEGATIVE (NEGATIVE); RESPIRATORY SYNCTIAL VIRUS NEGATIVE (NEGATIVE); SARS-CoV-2 Xpert Express NEGATIVE (NEGATIVE)
[2024-05-03] MEDS ORDERED: Pepcid 20 MG ONE ×2 (11:49→11:50)
[2024-05-03] MEDS: DELTASONE 20 MG PO ONE (11:49)
[2024-05-03] MEDS ORDERED: DELTASONE 20 MG ONE (11:49)
[2024-05-03] MEDS: Pepcid 20 MG PO ONE (11:50)
[2024-05-03 11:51] VITALS: O2SAT 96
== END 2024-05-03 12:04 | disposition home or self-care (01) ==
LOC: ED 09:59
DX: T78.40XA Allergy, unspecified, initial encounter (principal); R21 Rash and other nonspecific skin eruption; J02.9 Acute pharyngitis, unspecified; Z79.52 Long term (current) use of systemic steroids; Z79.899 Other long term (current) drug therapy; Z72.0 Tobacco use
CPT/HCPCS: 0241U; 71045; 87651; 99284; 99283; A9270-GY

== ENCOUNTER 2024-05-12 01:03 | Emergency (ER) | payer OTHER ==
[2024-05-12 01:32] VITALS: TEMP 98.3
--- NOTE | 2024-05-12 01:51 | ERPHSYRPT ---
- History of Present Illness Time Seen by Provider: 05/12/24 01:40 Historian: patient Exam Limitations: no limitations Patient Subjective Stated Complaint: c/o nausea and lightheaded Triage Nursing Assessment: Patient brought to ED by boyfriend with c/o nausea and lightheadedness. patient stated that she has felt lightheaded all day and went home from work around 2300 and symptoms haven't gone away. no vomiting, patient has had diarrhea for 2 days. bowel sounds present in all 4 quads, last BM and oral intake was today. patient appears pale, afebrile, vitals wnl, pulses normal, gait steady, patient doesn't appear to be in any distress at this time. Physician History: This is a 23-year-old white female patient of Dr. Tomas who presents to the emergency department with complaints of nausea, lightheadedness and diarrhea intermittently for 2 days. Patient has a history of anxiety, depression, irritable bowel syndrome. She recently flu vaccination. In the last couple days she had the above-stated symptoms and she feels as though she was going to pass out. She did go to work today. When she was home she had to go outside because she was having trouble breathing. She has not had cough. She denies chest pain. She currently has no shortness of breath. She is a daily smoker of tobacco cigarettes. Timing/Duration: day(s) (2), worse Activities at Onset: none Severity of Pain-Max: mild Severity of Pain-Current: mild Modifying Factors: Improves With: other (Nausea and diarrhea) Associated Symptoms: diarrhea, loss of appetite, nausea, other (Lightheadedness) Previous symptoms: no prior history, recently seen Allergies/Adverse Reactions: egg Allergy (Verified 05/12/24 01:33) latex Allergy (Verified 05/12/24 01:33) Latex, Natural Rubber Allergy (Verified 05/12/24 01:33) Hx Tetanus, Diphtheria Vaccination/Date Given: Yes Hx Influenza Vaccination/Date Given: Yes Hx Pneumococcal Vaccination/Date Given: No Travel Risk - International Travel Have you traveled outside of the country in past 3 weeks: No - Emerging Infectious Disease Are you exhibiting symptoms associated with any current EIDs: Yes Symptoms: Abdominal Pain, Diarrhea - Review of Systems Constitutional: No Symptoms Eyes: No Symptoms Ears, Nose, & Throat: No Symptoms Respiratory: No Symptoms Cardiac: No Symptoms Abdominal/Gastrointestinal: Nausea, Diarrhea, Appetite Changes Genitourinary Symptoms: No Symptoms Neurological: Other (Lightheadedness) Psychological: No Symptoms Endocrine: No Symptoms Hematologic/Lymphatic: No Symptoms Immunological/Allergic: No Symptoms All Other Systems: Reviewed and Negative - Past Medical History Pertinent Past Medical History: Yes Neurological History: No Pertinent History ENT History: No Pertinent History Cardiac History: No Pertinent History Respiratory History: No Pertinent History Endocrine Medical History: No Pertinent History Musculoskeletal History: No Pertinent History GI Medical History: No Pertinent History History: No Pertinent History Psycho-Social History: Depression Female Reproductive Disorders: No Pertinent History Other Medical History: irritable bowel - Past Surgical History Past Surgical History: No - Female History Hx Last Menstrual Period: 04/27/2024 Hx Now: No - Social History Smoking Status: Current every day smoker How long have you smoked: couple yea Exposure to second hand smoke: Yes Drug Use: none Patient Lives Alone: No - Social Determinants of Health Will the patient participate in the screening: Yes Do you worry about a steady place to live?: No Do you have any problems with any of the following?: No known problems In the past 12 months,have you had to go without utilities?: No Transportation Issues: No Has anyone in your support network made you feel unsafe?: No Have you or anyone in your house had to go without enough: No - Nursing Vital Signs Nursing Vital Signs: Initial Vital Signs Temperature 98.3 F 05/12/24 01:21 Pulse Rate 85 05/12/24 01:21 Respiratory Rate 18 05/12/24 01:21 Blood Pressure 160/74 05/12/24 01:21 O2 Sat by Pulse Oximetry 99 05/12/24 01:21 Pain Scale Pain Intensity 6 - Physical Exam General Appearance: no apparent distress, alert, anxiety Eye Exam: PERRL/EOMI, eyes nml inspection Ears, Nose, Throat Exam: normal ENT inspection, moist mucous membranes Neck Exam: normal inspection, non-tender, supple, full range of motion Respiratory Exam: normal breath sounds, lungs clear, airway intact, No chest tenderness, No respiratory distress Cardiovascular Exam: regular rate/rhythm, normal heart sounds, normal peripheral pulses Gastrointestinal/Abdomen Exam: soft, normal bowel sounds, No tenderness Pelvic Exam: not done Rectal Exam: not done Back Exam: normal inspection, normal range of motion, No CVA tenderness, No vertebral tenderness Extremity Exam: normal inspection, normal range of motion, pelvis stable Neurologic Exam: alert, oriented x 3, cooperative, 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 nml as tested, nml cerebellar function, nml station & gait, sensation nml Skin Exam: normal color, warm, dry Lymphatic Exam: No adenopathy SpO2 Interpretation: normal SpO2: 99 O2 Delivery: Room Air - Course Nursing assessment & vital signs reviewed: Yes Ordered Tests: Active Orders 24 hr Category Date Time Status IV Insertion STAT Care 05/12/24 01:51 Active AMYLASE Stat Lab 05/12/24 02:05 Completed CBC W DIFF Stat Lab 05/12/24 02:05 Completed CMP Stat Lab 05/12/24 02:05 Completed HCG QUALITATIVE, URINE Stat Lab 05/12/24 02:05 Completed LIPASE Stat Lab 05/12/24 02:05 Completed MONO SCREEN Stat Lab 05/12/24 02:05 Completed UA W/RFX UR CULTURE Stat Lab 05/12/24 02:05 Completed Medication Summary Discontinued Medications Generic Name Dose Route Start Last Admin Trade Name Antonyq PRN Reason Stop Dose Admin Sodium Chloride 1,000 mls @ 999 mls/hr 05/12/24 01:51 05/12/24 03:13 Sodium Chloride 0.9% 1000 Ml IV 05/12/24 02:51 Infused .Q1H1M STA Infusion Sodium Chloride Confirm 05/12/24 02:03 Sodium Chloride 0.9% 1000 Ml Administered 05/12/24 02:04 Dose 1,000 mls @ ud .ROUTE .STK-MED ONE Ondansetron HCl 4 mg 05/12/24 01:51 05/12/24 02:04 Ondansetron Hcl 4 Mg/2 Ml Vial IV 05/12/24 01:52 4 mg STAT ONE Administration Ondansetron HCl Confirm 05/12/24 02:03 Ondansetron Hcl 4 Mg/2 Ml Vial Administered 05/12/24 02:04 Dose 4 mg .ROUTE .STK-MED ONE Lab/Rad Data: Laboratory Result Diagrams 05/12/24 02:05 05/12/24 02:05 Laboratory Results 05/12/24 05/12/24 05/12/24 Range/Units 02:05 02:05 02:05 WBC 9.3 (3.98-10.04) x10^3/uL RBC 4.87 (3.93-5.22) x10^6/uL Hgb 14.2 (11.2-15.7) g/dL Hct 40.3 (34.1-44.9) % MCV 82.8 (79.4-94.8) fL MCH 29.2 (25.6-32.2) pg MCHC 35.2 (32.2-35.5) g/dL RDW 12.5 (11.7-14.4) % Plt Count 230 (182-369) x10^3/uL MPV 11.3 (9.4-12.3) fL Gran % 78.5 H (34.0-71.1) % Immature Gran % (Auto) 0.2 (0.001-0.429) % Nucleat RBC Rel Count 0.0 (0.00-0.2) % Eos # (Auto) 0.04 (0.04-0.36) x10^3/uL Immature Gran # (Auto) 0.02 (0.001-0.031) x10^3u/L Absolute Lymphs (auto) 1.38 (1.18-3.74) x10^3/uL Absolute Monos (auto) 0.54 (0.24-0.86) x10^3/uL Absolute Nucleated RBC 0.00 (0.00-0.012) x10^3u/L Lymphocytes % 14.9 L (19.3-51.7) % Monocytes % 5.8 (4.7-12.5) % Eosinophils % 0.4 L (0.7-5.8) % Basophils % 0.2 (0.1-1.2) % Absolute Granulocytes 7.29 H (1.56-6.13) x10^3/uL Basophils # 0.02 (0.01-0.08) x10^3/uL Sodium 139 (135-145) mmol/L Potassium 3.7 (3.5-5.1) mmol/L Chloride 106 (98-107) mmol/L Carbon Dioxide 23 (22-30) mmol/L Anion Gap 13.0 (5-15) MEQ/L BUN 10 (7-17) mg/dL Creatinine 0.80 (0.52-1.04) mg/dL Estimated GFR 105.5 ML/MIN Glucose 129 H (74-106) mg/dL Calcium 9.7 (8.4-10.2) mg/dL Total Bilirubin 0.60 (0.2-1.3) mg/dL AST 32 (14-36) U/L ALT 20 (0-35) U/L Alkaline Phosphatase 104 (38-126) U/L Serum Total Protein 7.9 (6.3-8.2) g/dL Albumin 4.7 (3.5-5.0) g/dL Amylase 64 (30-110) U/L Lipase 55 (23-300) U/L Urine Color (Yellow) Urine Appearance (Clear) Urine pH (4.6-8.0) Ur Specific Meta (1.005-1.030) Urine Protein (Negative) Urine Glucose (UA) (Negative) mg/dL Urine Ketones (Negative) Urine Blood (Negative) Urine Nitrite (Negative) Urine Bilirubin (Negative) Urine Urobilinogen (0.2) mg/dL Ur Leukocyte Esterase (Negative) U Hyaline Cast (Auto) (0-2) /LPF Urine Microscopic RBC (0-5) /HPF Urine Microscopic WBC (0-5) /HPF Ur Epithelial Cells (None Seen) /HPF Urine Bacteria (None Seen) /HPF Urine Culture Reflexed (NO) Urine HCG, Qual NEGATIVE (NEGATIVE) Monoscreen POSITIVE A (NEGATIVE) Influenza Type A Ag (NEGATIVE) Influenza Type B Ag (NEGATIVE) RSV (PCR) (NEGATIVE) SARS-CoV-2 (PCR) (NEGATIVE) 05/12/24 05/12/24 Range/Units 02:05 01:45 WBC (3.98-10.04) x10^3/uL RBC (3.93-5.22) x10^6/uL Hgb (11.2-15.7) g/dL Hct (34.1-44.9) % MCV (79.4-94.8) fL MCH (25.6-32.2) pg MCHC (32.2-35.5) g/dL RDW (11.7-14.4) % Plt Count (182-369) x10^3/uL MPV (9.4-12.3) fL Gran % (34.0-71.1) % Immature Gran % (Auto) (0.001-0.429) % Nucleat RBC Rel Count (0.00-0.2) % Eos # (Auto) (0.04-0.36) x10^3/uL Immature Gran # (Auto) (0.001-0.031) x10^3u/L Absolute Lymphs (auto) (1.18-3.74) x10^3/uL Absolute Monos (auto) (0.24-0.86) x10^3/uL Absolute Nucleated RBC (0.00-0.012) x10^3u/L Lymphocytes % (19.3-51.7) % Monocytes % (4.7-12.5) % Eosinophils % (0.7-5.8) % Basophils % (0.1-1.2) % Absolute Granulocytes (1.56-6.13) x10^3/uL Basophils # (0.01-0.08) x10^3/uL Sodium (135-145) mmol/L Potassium (3.5-5.1) mmol/L Chloride (98-107) mmol/L Carbon Dioxide (22-30) mmol/L Anion Gap (5-15) MEQ/L BUN (7-17) mg/dL Creatinine (0.52-1.04) mg/dL Estimated GFR ML/MIN Glucose (74-106) mg/dL Calcium (8.4-10.2) mg/dL Total Bilirubin (0.2-1.3) mg/dL AST (14-36) U/L ALT (0-35) U/L Alkaline Phosphatase (38-126) U/L Serum Total Protein (6.3-8.2) g/dL Albumin (3.5-5.0) g/dL Amylase (30-110) U/L Lipase (23-300) U/L Urine Color Yellow (Yellow) Urine Appearance Clear (Clear) Urine pH 7.0 (4.6-8.0) Ur Specific Meta <=1.005 (1.005-1.030) Urine Protein Negative (Negative) Urine Glucose (UA) Negative (Negative) mg/dL Urine Ketones Negative (Negative) Urine Blood Negative (Negative) Urine Nitrite Negative (Negative) Urine Bilirubin Negative (Negative) Urine Urobilinogen 0.2 (0.2) mg/dL Ur Leukocyte Esterase Negative (Negative) U Hyaline Cast (Auto) NONE SEEN (0-2) /LPF Urine Microscopic RBC 0-2 (0-5) /HPF Urine Microscopic WBC 0-2 (0-5) /HPF Ur Epithelial Cells None Seen (None Seen) /HPF Urine Bacteria None Seen (None Seen) /HPF Urine Culture Reflexed NO (NO) Urine HCG, Qual (NEGATIVE) Monoscreen (NEGATIVE) Influenza Type A Ag NEGATIVE (NEGATIVE) Influenza Type B Ag NEGATIVE (NEGATIVE) RSV (PCR) NEGATIVE (NEGATIVE) SARS-CoV-2 (PCR) NEGATIVE (NEGATIVE) - Progress Progress: improved, re-examined Progress Note: 05/12/24 02:20 My medical decision making and the assignment of moderate complexity to this patient's medical issue today is based on review of the patient's past medical history, review the patient's medication list, reviewed patient drug allergy list, history present illness and physical findings on examination. The workup in this patient includes placement of intravenous line, infusion of normal saline solution, infusion of Zofran, CBC, CMP, amylase, lipase, monotest, viral swabs, urinalysis, test. Differential diagnosis includes but is not limited to pancreatitis, viral illness, , dehydration, urinary tract infection, anxiety about health 05/12/24 03:16 I interpreted the patient's laboratory data results. Based on the laboratory data results, the patient has tested positive for mononucleosis Counseled pt/family regarding: lab results, diagnosis, need for follow-up Medical Desision Making - Diagnostic Testing Diagnostic test were ordered, analyzed, and reviewed by me: Yes - Risk of complications The pt has a mod risk of morbidity or mortality based on: Need for prescription drug management - Departure Departure Disposition: Home Clinical Impression: Mononucleosis Condition: Stable Critical Care Time: No Referrals: MARTÍNEZ TOMAS MD [Primary Care Provider] - Follow up/PCP as directed Additional Instructions: Drink plenty of clear liquids. Avoid fatty greasy spicy foods. Use Tylenol and ibuprofen for pain and fever control. Prescriptions: Ondansetron ODT 4 MG [Zofran Odt 4 mg] 4 mg PO Q6H PRN PRN #10 tablet PRN Reason: Vomiting
[2024-05-12] MEDS ORDERED: Sodium Chloride 0.9% 1000 ML 1,000 ML ONE (02:03)
[2024-05-12] MEDS ORDERED: Zofran 4 MG/2 ML VIAL ONE (02:03)
[2024-05-12] MEDS: Zofran 4 MG/2 ML VIAL IV ONE (02:04)
[2024-05-12] MEDS: Sodium Chloride 0.9% 1000 ML 1,000 ML IV STA (02:05)
[2024-05-12 02:10] LABS: Absolute Neutrophil Ct (ANC) 7.29 x10^3/uL (1.56-6.13); BASOPHIL % 0.2 % (0.1-1.2); Basophil (Absolute #) 0.02 x10^3/uL (0.01-0.08); Eosinophil % 0.4 % (0.7-5.8); Eosinophil (Absolute #) 0.04 x10^3/uL (0.04-0.36); Hematocrit 40.3 % (34.1-44.9); Hemoglobin 14.2 g/dL (11.2-15.7); IMMATURE GRAN # 0.02 x10^3u/L (0.001-0.031); IMMATURE GRAN % 0.2 % (0.001-0.429); Lymphocyte (Absolute #) 1.38 x10^3/uL (1.18-3.74); Lymphocytes % 14.9 % (19.3-51.7); Mean Cell Volume 82.8 fL (79.4-94.8); Mean Corpuscular Hemoglobin 29.2 pg (25.6-32.2); Mean Corpuscular Hgb Concent. 35.2 g/dL (32.2-35.5); Mean Platelet Volume 11.3 fL (9.4-12.3); Monocyte (Absolute #) 0.54 x10^3/uL (0.24-0.86); Monocytes % 5.8 % (4.7-12.5); Neutrophil % 78.5 % (34.0-71.1); Platelet Count 230 x10^3/uL (182-369); Red Blood Count 4.87 x10^6/uL (3.93-5.22); Red Cell Distribution Width 12.5 % (11.7-14.4); White Blood Count 9.3 x10^3/uL (3.98-10.04)
[2024-05-12 02:16] LABS: Appearance Clear (Clear); Bacteria None Seen /HPF (None Seen); Bilirubin Negative (Negative); Blood Negative (Negative); Epithelial Cells None Seen /HPF (None Seen); Glucose, Urine Negative (Negative); Hyaline Casts NONE SEEN /LPF (0-2); Ketones Negative (Negative); Leukocyte Esterase Negative (Negative); Nitrite Negative (Negative); Protein,Urine Dip Negative (Negative); RBC 0-2 /HPF (0-5); Specific Gravity <=1.005 (1.005-1.030); Urobilinogen 0.2 mg/dL (0.2); WBC 0-2 /HPF (0-5)
[2024-05-12 02:23] LABS: INFLUENZA A NEGATIVE (NEGATIVE); INFLUENZA B NEGATIVE (NEGATIVE); RESPIRATORY SYNCTIAL VIRUS NEGATIVE (NEGATIVE); SARS-CoV-2 Xpert Express NEGATIVE (NEGATIVE)
[2024-05-12 02:24] LABS: ALBUMIN 4.7 g/dL (3.5-5.0); BILIRUBIN,TOTAL 0.6 mg/dL (0.2-1.3); Calcium 9.7 mg/dL (8.4-10.2); Creatinine 1 0.8 mg/dL (0.52-1.04); EST GLOMERULAR FILTRATION RATE 105.5 ML/MIN; Potassium 3.7 mmol/L (3.5-5.1); Total Protein 7.9 g/dL (6.3-8.2)
[2024-05-12 02:29] LABS: HCG URINE TEST NEGATIVE (NEGATIVE)
[2024-05-12 03:09] VITALS: BP 135/82; PULSE 91; RESP 19
[2024-05-12 03:19] VITALS: O2SAT 99
== END 2024-05-12 03:34 | disposition home or self-care (01) ==
LOC: ED 01:03
DX: B27.90 Infectious mononucleosis, unspecified without complication (principal); R42 Dizziness and giddiness; R11.0 Nausea; R19.7 Diarrhea, unspecified; Z79.899 Other long term (current) drug therapy; Z72.0 Tobacco use
CPT/HCPCS: 0241U; 36415; 80053; 81001; 81025; 82150; 83690; 85025; 86308; 96360; 96374; 99284; J2405

== ENCOUNTER 2024-12-26 10:25 | Emergency (ER) | payer OTHER ==
[2024-12-26 10:41] VITALS: TEMP 98
[2024-12-26 10:42] VITALS: O2SAT 99
[2024-12-26] MEDS ORDERED: DUONEB 0.5-3 MG/3 ml Neb IH ONE (10:48)
--- NOTE | 2024-12-26 10:57 | ERPHSYRPT ---
- History of Present Illness Time Seen by Provider: 12/26/24 10:34 Source: patient Exam Limitations: no limitations Patient Subjective Stated Complaint: C/O right sided chest pain that radiates into her right shoulder and right side of her neck. Indicates pain started 2 days ago but is becoming worse and more consistent. Denies fall or injury. Triage Nursing Assessment: Patient ambulated back to ER. She is alert and oriented. No cough noted during assessment. No SOB. Skin tone normal. KAUFFMAN WNL. No edema. Physician History: Patient is here with chest pain, right sided. Has been constant for 2 days. She has not tried taking any Tylenol or ibuprofen for it. Patient does have an IUD in place. She does not believe she is . She has no falls, trauma. No fever, chills. She states that she has not had a cough, cold, congestion.Patient is taking PO well. Same number of urinations and defecations. The patient has no signs of altered mental status, nuchal rigidity, signs of meningitis. The patient is up-to-date on all vaccinations. Patient states that she does work in[employer]. However she has not been lifting anything heavy, new, different. Allergies/Adverse Reactions: Influenza Virus Vaccines Allergy (Severe, Verified 12/26/24 10:42) Difficulty Breathing Penicillins Allergy (Intermediate, Verified 12/26/24 10:42) Hives egg Allergy (Verified 12/26/24 10:42) latex Allergy (Verified 12/26/24 10:42) Latex, Natural Rubber Allergy (Verified 12/26/24 10:42) Home Medications: Doxycycline Hyclate 100 mg [Vibramycin 100 MG] 100 mg PO BID 12/26/24 [History] Famotidine 40 mg PO DAILY 12/26/24 [History] Sucralfate 1 gm [Carafate 1 GM] 1 g PO QID 12/26/24 [History] Hx Tetanus, Diphtheria Vaccination/Date Given: Yes Hx Influenza Vaccination/Date Given: Yes Hx Pneumococcal Vaccination/Date Given: No Immunizations Up to Date: Yes Travel Risk - International Travel Have you traveled outside of the country in past 3 weeks: No - Emerging Infectious Disease Are you exhibiting symptoms associated with any current EIDs: No Symptoms: Abdominal Pain, Diarrhea - Past Medical History Pertinent Past Medical History: Yes Neurological History: No Pertinent History ENT History: No Pertinent History Cardiac History: No Pertinent History Respiratory History: No Pertinent History Endocrine Medical History: No Pertinent History Musculoskeletal History: No Pertinent History GI Medical History: GERD History: No Pertinent History Psycho-Social History: Depression Female Reproductive Disorders: No Pertinent History Other Medical History: irritable bowel, Lyme's disease - Past Surgical History Past Surgical History: No - Female History Hx Last Menstrual Period: Last week Hx Now: No (IUD) - Social History Smoking Status: Never smoker Exposure to second hand smoke: No Drug Use: none - Social Determinants of Health Will the patient participate in the screening: Yes Do you worry about a steady place to live?: No Do you have any problems with any of the following?: No known problems In the past 12 months,have you had to go without utilities?: No Transportation Issues: No Has anyone in your support network made you feel unsafe?: No Have you or anyone in your house had to go w/o enough food: No - Nursing Vital Signs Nursing Vital Signs: Initial Vital Signs Temperature 98 F 12/26/24 10:30 Pulse Rate 96 H 12/26/24 10:30 Respiratory Rate 18 12/26/24 10:30 Blood Pressure 132/80 12/26/24 10:30 O2 Sat by Pulse Oximetry 100 12/26/24 10:30 Pain Scale Pain Intensity 6 - Physical Exam SpO2: 99 Comments: 12/26/24 12:45 Review of Systems Constitutional: Negative for fever. HENT: Negative for congestion. Respiratory: Negative for shortness of breath. Cardiovascular: Negative for chest pain. Gastrointestinal: Negative for abdominal pain. Genitourinary: Negative for dysuria. Musculoskeletal: Negative for back pain. Skin: Negative for rash. Neurological: Negative for headaches. Psychiatric/Behavioral: Negative for behavioral problems. All other systems reviewed and are negative. Physical Exam Vitals signs and nursing note reviewed. Constitutional: Appearance: Patient is well-developed. HENT: Head: Normocephalic and atraumatic. Eyes: Conjunctiva/sclera: Conjunctivae normal. Neck: Musculoskeletal: Normal range of motion. Trachea: No tracheal deviation. Cardiovascular: Rate and Rhythm: Normal rate. Heart sounds normal. Pulmonary: Effort: Pulmonary effort is normal. No respiratory distress. Abdominal: Palpations: Abdomen is soft. Musculoskeletal: General: No deformity. No reproducible right sided chest tenderness. Skin: General: Skin is warm and dry. Neurological/ Psychiatric: Mental Status: Mental status, behavior, interaction with environment is appropriate for patient's age and condition - Course Nursing assessment & vital signs reviewed: Yes EKG Interpreted by Me: Sinus Rhythm (EKG my interpretation at 1028 demonstrates sinus rhythm, rate of 78, LA interval 154, QRS 94, QTc is 375, QTc is 427, no STEMI or other ST changes) Ordered Tests: Active Orders 24 hr Category Date Time Status [employer] De Cuisine STAT Care 12/26/24 10:42 Completed EKG-ER Only STAT Care 12/26/24 10:41 Completed IV Insertion STAT Care 12/26/24 10:41 Completed CHEST 2 VIEWS (PA AND LAT) Stat Exams 12/26/24 10:42 Completed CBC W DIFF Stat Lab 12/26/24 10:55 Completed CMP Stat Lab 12/26/24 10:55 Completed D-DIMER QUANTITATIVE Stat Lab 12/26/24 10:55 Completed HCG QUALITATIVE, URINE Stat Lab 12/26/24 11:09 Completed NT PRO BNPII Stat Lab 12/26/24 10:55 Completed TROPONIN Q4H Lab 12/26/24 10:55 Completed UA W/RFX UR CULTURE Stat Lab 12/26/24 11:02 Completed Respiratory Therapy Assessment DAILY RT 12/26/24 10:58 Completed Medication Summary Discontinued Medications Generic Name Dose Route Start Last Admin Trade Name Freq PRN Reason Stop Dose Admin Albuterol/Ipratropium 3 ml 12/26/24 10:41 12/26/24 10:58 Ipratropium/Albuterol Sulfate 3 Ml Ampul.Neb IH 12/26/24 10:42 3 ml STAT ONE Administration Albuterol/Ipratropium Confirm 12/26/24 10:48 Ipratropium/Albuterol Sulfate 3 Ml Ampul.Neb Administered 12/26/24 10:49 Dose 3 ml IH .STK-MED ONE Lab/Rad Data: Laboratory Result Diagrams 12/26/24 10:55 12/26/24 10:55 Laboratory Results 12/26/24 12/26/24 12/26/24 Range/Units 11:09 11:02 10:55 WBC (3.98-10.04) x10^3/uL RBC (3.93-5.22) x10^6/uL Hgb (11.2-15.7) g/dL Hct (34.1-44.9) % MCV (79.4-94.8) fL MCH (25.6-32.2) pg MCHC (32.2-35.5) g/dL RDW (11.7-14.4) % Plt Count (182-369) x10^3/uL MPV (9.4-12.3) fL Gran % (34.0-71.1) % Immature Gran % (Auto) (0.001-0.429) % Nucleat RBC Rel Count (0.00-0.2) % Eos # (Auto) (0.04-0.36) x10^3/uL Immature Gran # (Auto) (0.001-0.031) x10^3u/L Absolute Lymphs (auto) (1.18-3.74) x10^3/uL Absolute Monos (auto) (0.24-0.86) x10^3/uL Absolute Nucleated RBC (0.00-0.012) x10^3u/L Lymphocytes % (19.3-51.7) % Monocytes % (4.7-12.5) % Eosinophils % (0.7-5.8) % Basophils % (0.1-1.2) % Absolute Granulocytes (1.56-6.13) x10^3/uL Basophils # (0.01-0.08) x10^3/uL D-Dimer (0.0-0.50) mg/L Sodium (135-145) mmol/L Potassium (3.5-5.1) mmol/L Chloride (98-107) mmol/L Carbon Dioxide (22-30) mmol/L Anion Gap (5-15) MEQ/L BUN (7-17) mg/dL Creatinine (0.52-1.04) mg/dL Estimated GFR ML/MIN Glucose (74-106) mg/dL Calcium (8.4-10.2) mg/dL Total Bilirubin (0.2-1.3) mg/dL AST (14-36) U/L ALT (0-35) U/L Alkaline Phosphatase (38-126) U/L Troponin I (0.000-0.033) ng/mL NT-Pro-B Natriuret Pep (<300) pg/mL Serum Total Protein (6.3-8.2) g/dL Albumin (3.5-5.0) g/dL Urine Color Yellow (Yellow) Urine Appearance Clear (Clear) Urine pH 7.0 (4.6-8.0) Ur Specific Kiefer <=1.005 (1.005-1.030) Urine Protein Negative (Negative) Urine Glucose (UA) Negative (Negative) mg/dL Urine Ketones Negative (Negative) Urine Blood Negative (Negative) Urine Nitrite Negative (Negative) Urine Bilirubin Negative (Negative) Urine Urobilinogen 0.2 (0.2) mg/dL Ur Leukocyte Esterase Negative (Negative) U Hyaline Cast (Auto) NONE SEEN (0-2) /LPF Urine Microscopic RBC 0-2 (0-5) /HPF Urine Microscopic WBC 0-2 (0-5) /HPF Ur Epithelial Cells None Seen (None Seen) /HPF Urine Bacteria None Seen (None Seen) /HPF Urine Culture Reflexed NO (NO) Urine HCG, Qual NEGATIVE (NEGATIVE) Influenza Type A Ag NEGATIVE (NEGATIVE) Influenza Type B Ag NEGATIVE (NEGATIVE) RSV (PCR) NEGATIVE (NEGATIVE) SARS-CoV-2 (PCR) NEGATIVE (NEGATIVE) 12/26/24 12/26/24 12/26/24 Range/Units 10:55 10:55 10:55 WBC (3.98-10.04) x10^3/uL RBC (3.93-5.22) x10^6/uL Hgb (11.2-15.7) g/dL Hct (34.1-44.9) % MCV (79.4-94.8) fL MCH (25.6-32.2) pg MCHC (32.2-35.5) g/dL RDW (11.7-14.4) % Plt Count (182-369) x10^3/uL MPV (9.4-12.3) fL Gran % (34.0-71.1) % Immature Gran % (Auto) (0.001-0.429) % Nucleat RBC Rel Count (0.00-0.2) % Eos # (Auto) (0.04-0.36) x10^3/uL Immature Gran # (Auto) (0.001-0.031) x10^3u/L Absolute Lymphs (auto) (1.18-3.74) x10^3/uL Absolute Monos (auto) (0.24-0.86) x10^3/uL Absolute Nucleated RBC (0.00-0.012) x10^3u/L Lymphocytes % (19.3-51.7) % Monocytes % (4.7-12.5) % Eosinophils % (0.7-5.8) % Basophils % (0.1-1.2) % Absolute Granulocytes (1.56-6.13) x10^3/uL Basophils # (0.01-0.08) x10^3/uL D-Dimer < 0.19 (0.0-0.50) mg/L Sodium 139 (135-145) mmol/L Potassium 3.8 (3.5-5.1) mmol/L Chloride 105 (98-107) mmol/L Carbon Dioxide 24 (22-30) mmol/L Anion Gap 14.0 (5-15) MEQ/L BUN 8 (7-17) mg/dL Creatinine 0.73 (0.52-1.04) mg/dL Estimated GFR 117.0 ML/MIN Glucose 94 (74-106) mg/dL Calcium 9.4 (8.4-10.2) mg/dL Total Bilirubin 0.80 (0.2-1.3) mg/dL AST 27 (14-36) U/L ALT 21 (0-35) U/L Alkaline Phosphatase 94 (38-126) U/L Troponin I < 0.012 (0.000-0.033) ng/mL NT-Pro-B Natriuret Pep 21.5 (<300) pg/mL Serum Total Protein 7.3 (6.3-8.2) g/dL Albumin 4.4 (3.5-5.0) g/dL Urine Color (Yellow) Urine Appearance (Clear) Urine pH (4.6-8.0) Ur Specific Kiefer (1.005-1.030) Urine Protein (Negative) Urine Glucose (UA) (Negative) mg/dL Urine Ketones (Negative) Urine Blood (Negative) Urine Nitrite (Negative) Urine Bilirubin (Negative) Urine Urobilinogen (0.2) mg/dL Ur Leukocyte Esterase (Negative) U Hyaline Cast (Auto) (0-2) /LPF Urine Microscopic RBC (0-5) /HPF Urine Microscopic WBC (0-5) /HPF Ur Epithelial Cells (None Seen) /HPF Urine Bacteria (None Seen) /HPF Urine Culture Reflexed (NO) Urine HCG, Qual (NEGATIVE) Influenza Type A Ag (NEGATIVE) Influenza Type B Ag (NEGATIVE) RSV (PCR) (NEGATIVE) SARS-CoV-2 (PCR) (NEGATIVE) 12/26/24 Range/Units 10:55 WBC 8.2 (3.98-10.04) x10^3/uL RBC 5.17 (3.93-5.22) x10^6/uL Hgb 14.8 (11.2-15.7) g/dL Hct 44.0 (34.1-44.9) % MCV 85.1 (79.4-94.8) fL MCH 28.6 (25.6-32.2) pg MCHC 33.6 (32.2-35.5) g/dL RDW 12.3 (11.7-14.4) % Plt Count 189 (182-369) x10^3/uL MPV 11.5 (9.4-12.3) fL Gran % 71.6 H (34.0-71.1) % Immature Gran % (Auto) 0.2 (0.001-0.429) % Nucleat RBC Rel Count 0.0 (0.00-0.2) % Eos # (Auto) 0.28 (0.04-0.36) x10^3/uL Immature Gran # (Auto) 0.02 (0.001-0.031) x10^3u/L Absolute Lymphs (auto) 1.59 (1.18-3.74) x10^3/uL Absolute Monos (auto) 0.41 (0.24-0.86) x10^3/uL Absolute Nucleated RBC 0.00 (0.00-0.012) x10^3u/L Lymphocytes % 19.3 (19.3-51.7) % Monocytes % 5.0 (4.7-12.5) % Eosinophils % 3.4 (0.7-5.8) % Basophils % 0.5 (0.1-1.2) % Absolute Granulocytes 5.90 (1.56-6.13) x10^3/uL Basophils # 0.04 (0.01-0.08) x10^3/uL D-Dimer (0.0-0.50) mg/L Sodium (135-145) mmol/L Potassium (3.5-5.1) mmol/L Chloride (98-107) mmol/L Carbon Dioxide (22-30) mmol/L Anion Gap (5-15) MEQ/L BUN (7-17) mg/dL Creatinine (0.52-1.04) mg/dL Estimated GFR ML/MIN Glucose (74-106) mg/dL Calcium (8.4-10.2) mg/dL Total Bilirubin (0.2-1.3) mg/dL AST (14-36) U/L ALT (0-35) U/L Alkaline Phosphatase (38-126) U/L Troponin I (0.000-0.033) ng/mL NT-Pro-B Natriuret Pep (<300) pg/mL Serum Total Protein (6.3-8.2) g/dL Albumin (3.5-5.0) g/dL Urine Color (Yellow) Urine Appearance (Clear) Urine pH (4.6-8.0) Ur Specific Kiefer (1.005-1.030) Urine Protein (Negative) Urine Glucose (UA) (Negative) mg/dL Urine Ketones (Negative) Urine Blood (Negative) Urine Nitrite (Negative) Urine Bilirubin (Negative) Urine Urobilinogen (0.2) mg/dL Ur Leukocyte Esterase (Negative) U Hyaline Cast (Auto) (0-2) /LPF Urine Microscopic RBC (0-5) /HPF Urine Microscopic WBC (0-5) /HPF Ur Epithelial Cells (None Seen) /HPF Urine Bacteria (None Seen) /HPF Urine Culture Reflexed (NO) Urine HCG, Qual (NEGATIVE) Influenza Type A Ag (NEGATIVE) Influenza Type B Ag (NEGATIVE) RSV (PCR) (NEGATIVE) SARS-CoV-2 (PCR) (NEGATIVE) - Progress Progress: improved Progress Note: 12/26/24 12:46 Differential diagnosis includes: PNA, STEMI, NSTEMI, other infection, musculoskeletal pain, pneumothorax - We'll obtain basic labs, fluids, EKG, troponin, chest x-ray - EKG shows no ST changes - my read - O2 saturations consistently greater than 95%. - CXR shows no pneumonia, pneumothorax - my read Patient's test is negative, no signs of infection, negative troponin, nonischemic EKG. Patient's D-dimer is negative, therefore much less likely to be a pulmonary embolism today. Patient overall feels improved. Plan for discharge home today. Close follow-up with PCP. Patient may return here sooner for any new or changing symptoms. Counseled pt/family regarding: lab results, diagnosis, need for follow-up, rad results - Departure Departure Disposition: Home Clinical Impression: Right-sided chest pain Condition: Stable Critical Care Time: No Referrals: WEN ROMAN MD [Primary Care Provider, [facility]] - Follow up/PCP as directed Instructions: Atypical Chest Pain
[2024-12-26] MEDS: DUONEB 0.5-3 MG/3 ml Neb IH ONE (10:58)
[2024-12-26 11:03] LABS: BASOPHIL % 0.5 % (0.1-1.2); Basophil (Absolute #) 0.04 x10^3/uL (0.01-0.08); Eosinophil (Absolute #) 0.28 x10^3/uL (0.04-0.36); Hematocrit 44.0 % (34.1-44.9); Hemoglobin 14.8 g/dL (11.2-15.7); IMMATURE GRAN # 0.02 x10^3u/L (0.001-0.031); IMMATURE GRAN % 0.2 % (0.001-0.429); Lymphocyte (Absolute #) 1.59 x10^3/uL (1.18-3.74); Mean Corpuscular Hemoglobin 28.6 pg (25.6-32.2); Mean Corpuscular Hgb Concent. 33.6 g/dL (32.2-35.5); Monocyte (Absolute #) 0.41 x10^3/uL (0.24-0.86); NUCLEATED RBC # 0.00 x10^3u/L (0.00-0.012); NUCLEATED RBC % 0.0 % (0.00-0.2); Platelet Count 189 x10^3/uL (182-369); Red Blood Count 5.17 x10^6/uL (3.93-5.22); White Blood Count 8.2 x10^3/uL (3.98-10.04)
[2024-12-26 11:15] LABS: HCG URINE TEST NEGATIVE (NEGATIVE)
[2024-12-26 11:19] LABS: Glucose, Urine Negative (Negative); Protein,Urine Dip Negative (Negative); RBC 0-2 /HPF (0-5); WBC 0-2 /HPF (0-5)
[2024-12-26 11:30] LABS: Calcium 9.4 mg/dL (8.4-10.2); Carbon Dioxide 24.0 mmol/L (22-30); Creatinine 1 0.73 mg/dL (0.52-1.04); EST GLOMERULAR FILTRATION RATE 117.0 ML/MIN; Glucose 94.0 mg/dL (74-106); NT PRO BNPII 21.5 pg/mL (<300); Potassium 3.8 mmol/L (3.5-5.1); SGOT/AST 27.0 U/L (14-36); SGPT/ALT 21.0 U/L (0-35); Total Protein 7.3 g/dL (6.3-8.2)
[2024-12-26 11:42] LABS: INFLUENZA A NEGATIVE (NEGATIVE); INFLUENZA B NEGATIVE (NEGATIVE); RESPIRATORY SYNCTIAL VIRUS NEGATIVE (NEGATIVE); SARS-CoV-2 Xpert Express NEGATIVE (NEGATIVE)
--- NOTE | 2024-12-26 12:05 | XRAY ---
Indication: Pneumonia. Comparison: May 03, 2024 PA/lateral chest again demonstrates normal heart, lungs, and bony thorax.
[2024-12-26 12:32] VITALS: BP 127/84; PULSE 81; RESP 16
== END 2024-12-26 12:32 | disposition home or self-care (01) ==
LOC: ED 10:25
DX: R07.9 Chest pain, unspecified (principal); Z79.899 Other long term (current) drug therapy